=== PATIENT | female | born 1980 | race African-American/Black ===

== ENCOUNTER 2017-01-24 08:08 | Emergency (ER) | payer MEDICAID, SELFPAY ==
[2017-01-24] MEDS ORDERED: diphenhydrAMINE HCl 50 MG/ML 1 ML VIAL ONE (08:35)
[2017-01-24] MEDS ORDERED: Prochlorperazine 10 MG/2 ML VIAL ONE (08:35)
[2017-01-24] MEDS ORDERED: methylPREDNISolone Sod Succ/PF 125 MG/2 ML VIAL ONE (08:35)
[2017-01-24 09:00] LABS: #Basophils 0.1 thou/uL (0.0-0.2); #Eosinphils 0.1 thou/uL (0.0-0.7); #Lymphocytes 1.8 thou/uL (1.20-3.40); #Monocytes 0.5 thou/uL (0.11-0.59); #Neutrophils 3.3 thou/uL (1.40-6.50); %Basophils 2.2 % (0.0-1.0); %Eosinophils 1.3 % (0.0-10.0); %Lymphocytes 31.3 % (21.0-51.0); %Monocytes 8.4 % (0.0-10.0); %Neutrophils 56.7 % (42.0-75.0); Hemoglobin 11.2 g/dL (12.0-16.0); Mean Corpuscular HGB CONC 32.5 g/dL (32.0-36.0); Mean Corpuscular Hemoglobin 24.5 pg (27.0-31.0); Mean Corpuscular Volume 75.2 fl (81.0-99.0); Mean Platelet Volume 6.2 fL (7.4-10.4); Platelet Count 400 thou/uL (130-400); RBC Distribution Width 15.5 % (11.5-14.5); Red Blood Cell (RBC) Count 4.58 mill/uL (4.20-5.40); White Blood Cell (WBC) Count 5.8 thou/uL (4.8-10.8)
[2017-01-24 09:05] LABS: BHCG - Serum Negative (NEGATIVE); Pregs Control Background? CLEAR/WHITE (CLR/WHITE); Pregs Control Bar Appear? YES (CONTROL BAR)
[2017-01-24 09:10] LABS: Anisocytosis SLIGHT = 6-15 cells (100X) (0-5/hpf); MDiff Complete? YES; Microcytosis SLIGHT = 6-15 cells (100X) (0-5/hpf); PLT Morphology Comment Appears Adequate
[2017-01-24 09:13] LABS: ALT (SGPT) 18 U/L (8-55); AST (SGOT) 33 U/L (5-34); Alkaline Phosphatase 66 U/L (40-150); Anion Gap 15 mmol/L (10-20); BUN (Urea Nitrogen) 9 mg/dL (7.0-18.7); Bilirubin, Total 0.3 mg/dL (0.2-1.2); Calc. Creatinine Clearance 0 mL/min (70-130); Carbon Dioxide 21 mmol/L (22-29); Chloride 107 mmol/L (98-107); Estimated GFR-MDRD Greater than 90; Globulin 3.8 g/dL (2.4-3.5); Glucose 103 mg/dL (70-105); Potassium 4.2 mmol/L (3.5-5.1); Protein, Total 7.8 g/dL (6.0-8.3); Sodium 139 mmol/L (136-145)
[2017-01-24] MEDS ORDERED: Ketorolac Tromethamine 30 MG/ML VIAL ONE (09:30)
--- NOTE | 2017-01-24 20:20 | CT ---
CT OF THE BRAIN WITHOUT CONTRAST 01/24/17 The ventricles are normal in size with no shift. No intracranial bleeding or subarachnoid hemorrhage was seen. There is no sign of mass, edema, or stroke. The visible paranasal sinuses are clear. IMPRESSION: No acute intracranial findings. POS: HOME
== END 2017-01-24 09:48 | disposition home or self-care (01) ==
LOC: BURERS 08:08
DX: G43.909 Migraine, unspecified, not intractable, without status migrainosus (principal); F32.9 Major depressive disorder, single episode, unspecified; Z79.899 Other long term (current) drug therapy
CPT/HCPCS: 70450; 80053; 84703; 85025; 94760; 96361; 96374; 96375; J0780; J1200; J1885; J2930

== ENCOUNTER → 2018-06-18 | Emergency (ER) | payer OTHER, SELFPAY ==
[~2018-06-18] MED LIST: Ketorolac Tromethamine 30 MG/ML VIAL ONE
[2018-06-18 15:05] LABS: #Eosinphils 0.1 thou/uL (0.0-0.7); #Monocytes 0.5 thou/uL (0.11-0.59); #Neutrophils 3.4 thou/uL (1.40-6.50); %Basophils 0.5 % (0.0-1.0); %Eosinophils 2.4 % (0.0-10.0); %Lymphocytes 32.1 % (21.0-51.0); %Monocytes 8.9 % (0.0-10.0); Hypochromia SLIGHT = 6-15 cells (100X) (0-5/hpf); MDiff Complete? YES; Mean Corpuscular HGB CONC 31.2 g/dL (32.0-36.0); Mean Corpuscular Volume 70.6 fL (78.0-98.0); Mean Platelet Volume 5.9 fL (7.4-10.4); Microcytosis SLIGHT = 6-15 cells (100X) (0-5/hpf); Platelet Count 399 thou/uL (130-400); White Blood Cell (WBC) Count 6.1 thou/uL (4.8-10.8)
[2018-06-18 15:08] LABS: ALT (SGPT) 10 U/L (8-55); AST (SGOT) 10 U/L (5-34); Alkaline Phosphatase 68 U/L (40-150); Anion Gap 13 mmol/L (10-20); BUN (Urea Nitrogen) 9 mg/dL (7.0-18.7); Bilirubin, Total Less than 0.2 mg/dL (0.2-1.2); Calc. Creatinine Clearance 0 mL/min (70-130); Calcium 9.7 mg/dL (7.8-10.44); Carbon Dioxide 22 mmol/L (22-29); Chloride 107 mmol/L (98-107); Estimated GFR-MDRD Greater than 90; Globulin 4.1 g/dL (2.4-3.5); Glucose 179 mg/dL (70-105); Potassium 3.5 mmol/L (3.5-5.1); Protein, Total 8.1 g/dL (6.0-8.3); Sodium 138 mmol/L (136-145)
[2018-06-18 16:02] LABS: Bilirubin Negative (Negative); Blood, Urine Negative (Negative); Clarity Clear (Clear); Glucose, Urine (Dipstick) 250 mg/dL (Negative); Leukocyte Negative (Negative); Nitrite Negative (Negative); Protein, Urine (Dipstick) Negative (Neg-Trace); Specific Gravity, Urine 1.015 (1.005-1.030); Urobilinogen 0.2 mg/dL (0.2-1.0)
--- NOTE | 2018-06-18 20:04 | RAD ---
LUMBAR SPINE THREE VIEWS: 06/18/18 No fracture, dislocation, or disc space narrowing was seen. No bony anomalies were apparent. The SI j oints appear normal. IMPRESSION: No significant findings. POS: HOME
[2018-06-18 21:48] LABS: CRP (Inflammatory) 2.63 mg/dL (= or < 0.5)
== END ==
LOC: BURERS 13:56
DX: M54.5 Low back pain (principal); R50.9 Fever, unspecified; R26.2 Difficulty in walking, not elsewhere classified; I10 Essential (primary) hypertension; F32.9 Major depressive disorder, single episode, unspecified; Z79.899 Other long term (current) drug therapy
CPT/HCPCS: 36415; 72100; 80053; 81003; 83605; 85025; 85652; 86140; 87040; 93005; 96361; 96374; A4353; J1885

== ENCOUNTER → 2018-06-24 | Emergency (ER) | payer OTHER | LOC: BURERS 15:14 | DX: K02.9 Dental caries, unspecified (principal); I10 Essential (primary) hypertension; F32.9 Major depressive disorder, single episode, unspecified; Z79.899 Other long term (current) drug therapy | CPT/HCPCS: 99281 ==

== ENCOUNTER 2018-10-09 10:07 | Outpatient (CLI) | payer OTHER ==
--- NOTE | 2018-10-09 11:33 | RAD ---
RIGHT KNEE FOUR VIEWS: History: Knee pain. FINDINGS: Minimal spurring of the medial tibial condyle seen on the frontal projection. The joint spaces are pr eserved. No fracture or acute abnormality. No significant joint effusion is apparent. IMPRESSION: Mild degenerative spurring of the medial joint space. POS: [facility]
== END 2018-10-09 10:08 | disposition home or self-care (01) ==
LOC: BURRAD 10:07
PROVIDERS: ATTEND Physician Assistant
DX: M25.561 Pain in right knee (principal); M76.9 Unspecified enthesopathy, lower limb, excluding foot

== ENCOUNTER 2019-04-06 10:39 | Emergency (ER) | payer MEDICARE, MEDICAID ==
[2019-04-06 11:25] LABS: ALT (SGPT) 10 U/L (8-55); AST (SGOT) 20 U/L (5-34); Alkaline Phosphatase 75 U/L (40-150); Anion Gap 16 mmol/L (10-20); BUN (Urea Nitrogen) 11 mg/dL (7.0-18.7); Bilirubin, Total 0.6 mg/dL (0.2-1.2); Calc. Creatinine Clearance 0 mL/min (70-130); Calcium 9.5 mg/dL (7.8-10.44); Carbon Dioxide 23 mmol/L (22-29); Chloride 103 mmol/L (98-107); Estimated GFR-MDRD Greater than 90; Globulin 4.2 g/dL (2.4-3.5); Glucose 108 mg/dL (70-105); Lipase 11 U/L (8-78); Protein, Total 8.2 g/dL (6.0-8.3); Sodium 138 mmol/L (136-145)
[2019-04-06 11:30] LABS: Eosinophils 3 % (0-10); Lymphocytes 27 % (21-51); MDiff Complete? YES; Macrocytosis SLIGHT = 6-15 cells (100X) (0-5/hpf); Mean Corpuscular HGB CONC 30.8 g/dL (32.0-36.0); Mean Platelet Volume 6.1 fL (7.4-10.4); Microcytosis SLIGHT = 6-15 cells (100X) (0-5/hpf); Monocytes 7 % (0-10); Neutrophil 63 % (42-75); Platelet Count 397 thou/uL (130-400); RBC Distribution Width 16.6 % (11.5-14.5); Red Blood Cell (RBC) Count 4.56 mill/uL (4.20-5.40)
[2019-04-06] MEDS ORDERED: Ketorolac Tromethamine 30 MG/ML VIAL ONE (11:37)
--- NOTE | 2019-04-06 12:13 | RAD ---
EXAM: Chest one view: HISTORY: Chest pain COMPARISON: 05/24/2007 FINDINGS: Heart size: Within normal limits. Lungs: Clear of acute process. No evidence for pneumonia, pleural effusion, acute edema, or pneumothorax, or other significant acute process. IMPRESSION: No significant acute intrathoracic disease.
[2019-04-06] MEDS ORDERED: Dexamethasone 4 MG TAB ONE (12:29)
[2019-04-06] MEDS ORDERED: traMADol HCl 50 MG TAB ONE (12:29)
== END 2019-04-06 12:40 | disposition home or self-care (01) ==
LOC: BURERS 10:39
DX: R07.9 Chest pain, unspecified (principal); J45.909 Unspecified asthma, uncomplicated; I10 Essential (primary) hypertension; G62.9 Polyneuropathy, unspecified; F32.9 Major depressive disorder, single episode, unspecified; Z79.899 Other long term (current) drug therapy
CPT/HCPCS: 36415; 71045; 80053; 83690; 84484; 85025; 85379; 93005; 96374; J1885; J8540

== ENCOUNTER 2021-03-22 10:37 | Emergency (ER) | payer MEDICARE, MEDICAID ==
[2021-03-22] MEDS ORDERED: Nitroglycerin 0.4 MG TAB 1 EACH ONE (11:01)
[2021-03-22] MEDS ORDERED: Aspirin Chewable 81 MG TAB ONE (11:01)
[2021-03-22 11:18] LABS: ALT (SGPT) 9 U/L (8-55); AST (SGOT) 16 U/L (5-34); Albumin 3.9 g/dL (3.5-5.0); Alkaline Phosphatase 82 U/L (40-110); Anion Gap 13 mmol/L (10-20); BUN (Urea Nitrogen) 14 mg/dL (7.0-18.7); Bilirubin, Total 0.3 mg/dL (0.2-1.2); Calc. Creatinine Clearance 0 mL/min (70-130); Calcium 9.5 mg/dL (7.8-10.44); Carbon Dioxide 25 mmol/L (22-29); Chloride 107 mmol/L (98-107); Globulin 3.9 g/dL (2.4-3.5); Glucose 123 mg/dL (70-105); Magnesium 1.8 mg/dL (1.6-2.6); Potassium 3.8 mmol/L (3.5-5.1); Protein, Total 7.8 g/dL (6.0-8.3); Sodium 141 mmol/L (136-145)
[2021-03-22 11:29] LABS: #Basophils 0.1 thou/uL (0.0-0.2); #Eosinphils 0.1 thou/uL (0.0-0.7); #Lymphocytes 1.9 thou/uL (1.20-3.40); #Monocytes 0.6 thou/uL (0.11-0.59); %Basophils 1.1 % (0.0-1.0); %Eosinophils 1.7 % (0.0-10.0); %Lymphocytes 33.6 % (21.0-51.0); %Monocytes 10.8 % (0.0-10.0); %Neutrophils 52.8 % (42.0-75.0); Anisocytosis SLIGHT = 6-15 cells (100X) (0-5/hpf); Hemoglobin 12.2 g/dL (12.0-16.0); MDiff Complete? YES; Mean Corpuscular HGB CONC 31.2 g/dL (32.0-36.0); Mean Corpuscular Hemoglobin 24.9 pg (27.0-31.0); Mean Corpuscular Volume 79.8 fL (78.0-98.0); Mean Platelet Volume 5.6 fL (7.4-10.4); Platelet Count 387 thou/uL (130-400); Platelet Morphology Comment Appears Adequate; RBC Distribution Width 16.1 % (11.5-14.5); Red Blood Cell (RBC) Count 4.89 mill/uL (4.20-5.40); White Blood Cell (WBC) Count 5.6 thou/uL (4.8-10.8)
[2021-03-22 11:37] LABS: CKMB 1.2 ng/mL (0-6.6)
[2021-03-22 11:49] LABS: Pregnancy Test - Urine (BHCG) Negative (Negative); Pregu Control Background? CLEAR/WHITE (CLR/WHITE); Pregu Control Bar Appear? YES (CONTROL BAR); Specific Gravity 1.025 (1.002-1.036)
[2021-03-22 11:56] LABS: Amphetamine Not Detected (NotDetected); Barbiturates Screen Not Detected (NotDetected); Benzodiazepine Screen Not Detected (NotDetected); Cocaine Metabolite Screen Not Detected (NotDetected); Medtox Control Line Valid? VALID (VALID); Methadone Not Detected (NotDetected); Methamphetamine Not Detected (NotDetected); Opiate Screen Detected (NotDetected); Oxycodone Screen Not Detected (NotDetected); Phencyclidine (PCP) Not Detected (NotDetected); THC/Cannabinoid Screen Not Detected (NotDetected); Tricyclic Screen Not Detected (NotDetected)
[2021-03-22 14:08] LABS: Troponin I 0.031 ng/mL (< 0.028)
== END 2021-03-22 14:51 | disposition home or self-care (01) ==
LOC: BURERS 10:37
DX: R07.89 Other chest pain (principal); I10 Essential (primary) hypertension; J45.909 Unspecified asthma, uncomplicated; Z79.899 Other long term (current) drug therapy
CPT/HCPCS: 71045; 80053; 80306; 81025; 82553; 83735; 83880; 84484; 85025; 85379; 93005; 94760

== ENCOUNTER 2021-09-02 07:38 | Emergency (ER) | payer MEDICARE, OTHER | END 2021-09-02 08:53 | disposition home or self-care (01) | LOC: BURERS 07:38 | DX: I88.9 Nonspecific lymphadenitis, unspecified (principal); R22.1 Localized swelling, mass and lump, neck; I10 Essential (primary) hypertension; K21.9 Gastro-esophageal reflux disease without esophagitis; J45.909 Unspecified asthma, uncomplicated; E78.00 Pure hypercholesterolemia, unspecified; Z79.82 Long term (current) use of aspirin; Z79.899 Other long term (current) drug therapy | CPT/HCPCS: 99283 ==

== ENCOUNTER 2023-03-09 10:33 | Emergency (ER) | payer OTHER ==
[2023-03-09] MEDS ORDERED: Ibuprofen 800 MG TAB ONE (11:00)
[2023-03-09] MEDS ORDERED: Acetaminophen 500 MG TAB ONE (11:00)
== END 2023-03-09 11:05 | disposition home or self-care (01) ==
LOC: BURERS 10:33
DX: L03.116 Cellulitis of left lower limb (principal); I10 Essential (primary) hypertension; K21.9 Gastro-esophageal reflux disease without esophagitis; E78.00 Pure hypercholesterolemia, unspecified; Z79.82 Long term (current) use of aspirin; Z79.899 Other long term (current) drug therapy
CPT/HCPCS: 99283

== ENCOUNTER 2024-02-26 19:09 | Emergency (ER) | payer OTHER ==
[2024-02-26] MEDS ORDERED: Bupivacaine 0.5% 10 ML VIAL ONE (19:51)
[2024-02-26] MEDS ORDERED: Penicillin V Potassium 250 MG TAB ONE ×2 (19:52)
== END 2024-02-26 20:25 | disposition home or self-care (01) ==
LOC: BURERS 19:09
DX: K08.89 Other specified disorders of teeth and supporting structures (principal); K04.7 Periapical abscess without sinus; I25.10 Atherosclerotic heart disease of native coronary artery without angina pectoris; E78.00 Pure hypercholesterolemia, unspecified; I10 Essential (primary) hypertension; K21.9 Gastro-esophageal reflux disease without esophagitis; Z79.82 Long term (current) use of aspirin; Z79.899 Other long term (current) drug therapy
CPT/HCPCS: 99282; J3490